=== PATIENT | male | born 1970 | race American Indian/Alaskan Native ===

== ENCOUNTER 2018-08-16 19:55 | Emergency (ER) | payer MEDICAID ==
[2018-08-16 20:00] VITALS: BMI 25.0
[2018-08-16 20:30] VITALS: TEMP 98.3
--- NOTE | 2018-08-16 22:02 | ED PDOC ---
Arrival/HPI - General Chief Complaint: Substance Abuse Time Seen by Provider: 08/16/18 20:08 Historian: Patient EM Caveat: Intoxicated - History of Present Illness Narrative History of Present Illness (Text): 08/16/18 22:03 48 year old male, with no known past medical history, presents to the emergency department by EMS for intoxication. Patient was found wandering lost in the street, as per EMS. While in the emergency department, patient dropped a vile of formaldehyde "dip". HPI and ROS limited due to patient intoxication. Time/Duration: Prior to Arrival Past Medical History - Provider Review Nursing Documentation Reviewed: Yes - Infectious Disease Hx of Infectious Diseases: None Family/Social History - Physician Review Nursing Documentation Reviewed: Yes Family/Social History: No Known Family HX Allergies/Home Meds Allergies/Adverse Reactions: Allergies No Known Allergies Allergy (Verified 08/17/18 08:59) Home Medications: Home Meds Medication Instructions Recorded Confirmed No Known Home Med 02/09/16 02/09/16 Unobtainable 08/29/17 08/29/17 No Known Home Med 08/16/18 08/16/18 Review of Systems - Review of Systems Systems not reviewed;Unavailable: Intoxicated Physical Exam - Physical Exam Physical Exam Limitations: Intoxication, Uncooperative Vital Signs Reviewed: Yes Vital Signs Temp Pulse Resp BP Pulse Ox 08/16/18 20:15 98.3 F 94 H 24 117/97 H 97 Temperature: Afebrile Blood Pressure: Hypertensive Pulse: Regular Respiratory Rate: Normal Appearance: Positive for: Well-Appearing, Non-Toxic, Comfortable Pain Distress: None Mental Status: Positive for: Alert and Oriented X 3 Medical Decision Making ED Course and Treatment: 08/16/18 22:07 Impression: 48 year old male presents via EMS for intoxication. Plan: -- Labs -- Ativan -- Geodon -- One on One -- Restraint/seclusion for violent behavior -- Reassess and disposition Prior Visits: Notes and results from previous visits were reviewed. Progress Notes: - EKG Interpretation EKG Interpretation (Text): 08/16/18 22:13 nsr rate 91 nsst changes - Medication Orders Current Medication Orders: Discontinued Medications Ziprasidone (Geodon Inj) 10 mg IM STAT STA; Protocol Stop: 08/16/18 20:29 Last Admin: 08/16/18 20:36 Dose: 10 mg IM Administration Charges Document 08/16/18 20:36 TAMIKO (Rec: 08/16/18 20:36 TAMIKO [id number]) Injection Site MAR Injection Site Right Vastus Lateralis Charges for Administration # of IM Administrations 1 - Scribe Statement The provider has reviewed the documentation as recorded by the Scribe Rick Haas Provider Scribe Attestation: All medical record entries made by the Scribe were at my direction and personally dictated by me. I have reviewed the chart and agree that the record accurately reflects my personal performance of the history, physical exam, medical decision making, and the department course for this patient. I have also personally directed, reviewed, and agree with the discharge instructions and disposition. Disposition/Present on Arrival - Present on Arrival Any Indicators Present on Arrival: No History of DVT/PE: No History of Uncontrolled Diabetes: No Urinary Catheter: No History of Decub. Ulcer: No History Surgical Site Infection Following: None - Disposition Have Diagnosis and Disposition been Completed?: Yes Diagnosis: Substance abuse Disposition: HOME/ ROUTINE Disposition Time: 02:55 Condition: STABLE Discharge Instructions (ExitCare): Drug Abuse and Drug Addiction (DC) Referrals: Howard Beatty MD [Primary Care Provider] - Follow up with primary Forms: [employer] (Japanese)
--- NOTE | 2018-08-17 08:14 | CARD ---
APPROVED REPORT Date of service: 08/16/2018 EKG Measurement Heart [id number] <Conclusion> Normal sinus rhythm Minimal voltage criteria for LVH, may be normal variant Nonspecific ST abnormality
[2018-08-17 10:56] VITALS: BP 127/72; PULSE 82; RESP 18; O2SAT 98
== END 2018-08-17 02:57 | disposition home or self-care (01) ==
LOC: MERGE 19:55 → ED 19:55
DX: F19.10 Other psychoactive substance abuse, uncomplicated (principal)
CPT/HCPCS: 93005; 96372; 99285; J3486

== ENCOUNTER 2018-11-21 03:52 | Emergency (ER) | payer MEDICAID ==
[2018-11-21 03:55] VITALS: BMI 28.2
[2018-11-21 03:59] VITALS: BP 140/85; PULSE 78; RESP 16; TEMP 97.9; O2SAT 100
--- NOTE | 2018-11-21 04:37 | ED PDOC ---
Arrival/HPI - General Chief Complaint: Medical Clearance Time Seen by Provider: 11/21/18 04:17 Historian: Patient - History of Present Illness Narrative History of Present Illness (Text): 11/21/18 04:36 Kenneth Hays is a 48 year old male, whose past medical history includes substance abuse, who presents to the Emergency department brought in by EMS complaining of an open wound to the right upper arm. Patient was seen at [facility] on a couple of occasional, initially for a laceration to the right upper arm which was repaired. Patient apparently re-injured the arm with hematoma formation which was evacuated in the OR. Patient was discharged for follow-up with surgeon, which he did not keep. Patient subsequently injured his arm again, opening the wound. Patient was seen again at [facility] and was advised outpatient follow with non-closure of the wound at that time due to possible subsequent infection. Patient has not followed-up since. Patient denies any weakness/numbness/tingling in the extremity, decreased range of motion, fever, chills, or any other complaints. Symptom Onset: Gradual Symptom Course: Unchanged Activities at Onset: Light Context: Home Past Medical History - Provider Review Nursing Documentation Reviewed: Yes - Infectious Disease Hx of Infectious Diseases: None - Psychiatric Hx Substance Use: No (UNKNOWN) - Surgical History Hx Musculoskeletal Surgery: Yes (lt arm) - Anesthesia Hx Anesthesia: Yes Hx Anesthesia Reactions: No Hx Malignant Hyperthermia: No Family/Social History - Physician Review Nursing Documentation Reviewed: Yes Family/Social History: Unknown Family HX Smoking Status: Unknown If Ever Smoked Hx Alcohol Use: No (UNKNOWN) Hx Substance Use: No (UNKNOWN) Substance used: denies Allergies/Home Meds Allergies/Adverse Reactions: Allergies No Known Allergies Allergy (Verified 08/17/18 08:59) Review of Systems - Physician Review All systems were reviewed & negative as marked: Yes - Review of Systems Constitutional: Normal. absent: Fevers Eyes: Normal ENT: Normal Respiratory: Normal. absent: SOB, Cough Cardiovascular: Normal. absent: Chest Pain Gastrointestinal: Normal. absent: Abdominal Pain, Diarrhea, Nausea, Vomiting Genitourinary Male: Normal. absent: Dysuria, Frequency, Hematuria, Urinary Output Changes Musculoskeletal: Other (+open surgical wound). absent: Back Pain, Neck Pain Skin: Normal. absent: Rash Neurological: Normal. absent: Headache, Dizziness Endocrine: Normal Hemo/Lymphatic: Normal Psychiatric: Normal Physical Exam Vital Signs Reviewed: Yes Vital Signs Temp Pulse Resp BP Pulse Ox 11/21/18 03:55 97.9 F 78 16 140/85 100 Temperature: Afebrile Blood Pressure: Normal Pulse: Regular Respiratory Rate: Normal Appearance: Positive for: Well-Appearing, Non-Toxic, Comfortable Pain Distress: None Mental Status: Positive for: Alert and Oriented X 3 - Systems Exam Head: Present: Atraumatic, Normocephalic Pupils: Present: PERRL Extroacular Muscles: Present: EOMI Conjunctiva: Present: Normal Mouth: Present: Moist Mucous Membranes Neck: Present: Normal Range of Motion Respiratory/Chest: Present: Clear to Auscultation, Good Air Exchange. No: Respiratory Distress, Accessory Muscle Use Cardiovascular: Present: Regular Rate and Rhythm, Normal S1, S2. No: Murmurs Abdomen: No: Tenderness, Distention, Peritoneal Signs Back: Present: Normal Inspection Upper Extremity: Present: Normal Inspection. No: Cyanosis, Edema Lower Extremity: Present: Normal Inspection. No: Edema Neurological: Present: GCS=15, CN II-XII Intact, Speech Normal Skin: Present: Warm, Dry, Normal Color. No: Rashes Psychiatric: Present: Alert, Oriented x 3, Normal Insight, Normal Concentration Medical Decision Making ED Course and Treatment: 11/21/18 04:36 Impression: 48 year old male complaining of open wound to right upper arm Plan: -- Surgical consult -- Reassess and disposition Prior Visits: Notes and results from previous visits were reviewed. Progress Notes: Case discussed with surgical assistant mission planner, who agrees to evaluate pt in Emergency department. 11/21/18 05:43 Pt seen and evaluated by Dr. Gerry Yoder, surgical assistant mission planner, who irrigated and redressed wound. Instructed pt to follow-up with wound care center for regular wound care. - Scribe Statement The provider has reviewed the documentation as recorded by the Piper Loo Provider Scribe Attestation: All medical record entries made by the Scribe were at my direction and personally dictated by me. I have reviewed the chart and agree that the record accurately reflects my personal performance of the history, physical exam, medical decision making, and the department course for this patient. I have also personally directed, reviewed, and agree with the discharge instructions and disposition. Disposition/Present on Arrival - Present on Arrival Any Indicators Present on Arrival: No History of DVT/PE: No History of Uncontrolled Diabetes: No Urinary Catheter: No History of Decub. Ulcer: No History Surgical Site Infection Following: None - Disposition Have Diagnosis and Disposition been Completed?: Yes Diagnosis: Wound dehiscence Disposition: HOME/ ROUTINE Disposition Time: 05:40 Patient Plan: Discharge Condition: GOOD Discharge Instructions (ExitCare): Wound Dehiscence (DC) Additional Instructions: Keep area clean and dry/daily wound dressing changes/FOLLOW UP AT [facility] THIS WEEK -Keep arm elevated -Ice pack -Compression dressing to decrease edema -Local wound care w non -adhesive dressing on the open wound (xeroform gauze) -Follow up at [facility] wound care clinic to get wound reevaluated for possible approximation or skin graft in the future after swelling decreases Prescriptions: Cephalexin [cephalexin] 500 mg PO BID #[id number] cap Referrals: [facility] [Outside] - Follow up with primary [facility] [Outside] - Follow up with primary Forms: [employer] (Cape Verdean)
--- NOTE | 2018-11-21 05:47 | CP.PCM.CON ---
History of Present Illness - History of Present Illness History of Present Illness: Surgery 48 M w PMH of PCP , poly subtance abuse came w R elbow injury wound dehiescence. He injured his elbow in september by falling into glass initially got stitched up at [facility] and got reinjured. Obtained hematoma of the wound. hematoma was evacuated and drain placed at [facility]. Pt had drain and stitches removed. Pt presented to [facility] today with wound dehiescenc and soft tissue swelling of the open wound. Reports that arm started to swelling up. Pain controlled s NSAIDs. Denies fever, nausea, diarrhea, CP, SOB. Pt went to [facility] prior to coming to [facility] and was offered conservative management w arm elevation, compression dressing to keep the swelling down. Pt was unhappy with the care and came here. Wound irrigated and cleaned. Non -occlusive gauze applied. Amado wrap was applied to decrease soft tissue edema. PMH keloids Review of Systems - Review of Systems Review of Systems: See HPI Past Patient History - Infectious Disease Hx of Infectious Diseases: None - Past Social History Smoking Status: Unknown If Ever Smoked - PSYCHIATRIC Hx Substance Use: No (UNKNOWN) - SURGICAL HISTORY Hx Musculoskeletal Surgery: Yes (lt arm) - ANESTHESIA Hx Anesthesia: Yes Hx Anesthesia Reactions: No Hx Malignant Hyperthermia: No Meds Allergies/Adverse Reactions: Allergies Allergy/AdvReac Type Severity Reaction Status Date / Time No Known Allergies Allergy Verified 08/17/18 08:59 Physical Exam - Constitutional Appears: No Acute Distress - Head Exam Head Exam: ATRAUMATIC, NORMAL INSPECTION, NORMOCEPHALIC - Eye Exam Eye Exam: EOMI, Normal appearance, PERRL Pupil Exam: NORMAL ACCOMODATION, PERRL - ENT Exam ENT Exam: Mucous Membranes Moist, Normal Exam - Neck Exam Neck exam: Positive for: Full Rom - Respiratory Exam Respiratory Exam: NORMAL BREATHING PATTERN - Cardiovascular Exam Cardiovascular Exam: REGULAR RHYTHM - GI/Abdominal Exam GI & Abdominal Exam: Soft. absent: Tenderness - Extremities Exam Extremities exam: Negative for: full ROM, normal inspection Additional comments: R UE 3 cm above the elbow has 10cm x 4 x 1cm wound opening with [id number] and [id number] soft tissue with healthy granulation tissues. Dec ROM on elbow. Results - Vital Signs Recent Vital Signs: Last Vital Signs Temp 97.9 F 11/21/18 03:55 Pulse 78 11/21/18 03:55 Resp 16 11/21/18 03:55 BP 140/85 11/21/18 03:55 Pulse Ox 100 11/21/18 03:55 Assessment & Plan - Assessment and Plan (Free Text) Assessment: WOund dehiescence of R posterior elbow Because of soft tissue swelling, unable to approximate the wound at this time -Keep arm elevated -Ice pack -Compression dressing to decrease edema -Local wound care w non -adhesive dressing on the open wound (xeroform gauze) -Follow up at [facility] wound care clinic to get wound reevaluated for possible approximation of the skin or skin graft in the future after swelling decreases
== END 2018-11-21 06:14 | disposition home or self-care (01) ==
LOC: ED 03:52
DX: T81.30XA Disruption of wound, unspecified, initial encounter (principal)

== ENCOUNTER 2018-11-30 14:28 | Outpatient (CLI) | payer MEDICAID | END 2018-11-30 14:29 | disposition home or self-care (01) | LOC: RAD 14:28 ==

== ENCOUNTER 2018-12-05 09:46 | Outpatient (CLI) | payer MEDICAID | END 2018-12-05 09:47 | disposition home or self-care (01) | LOC: PAT 09:46 | DX: L89.014 Pressure ulcer of right elbow, stage 4 (principal) ==

== ENCOUNTER 2018-12-06 05:50 | Day surgery (SDC) | payer MEDICAID ==
[2018-12-06 07:11] VITALS: RESP 18
[2018-12-06] MEDS ORDERED: Bupivacaine 0.5% 50 ML IJ ONE (07:20)
[2018-12-06] MEDS ORDERED: Oxychlorosene Topical 2 gm Packet TOP ONE (07:21)
[2018-12-06] MEDS ORDERED: Propofol 10 mg/ml Inj (20 ML) ONE (07:29)
[2018-12-06] MEDS ORDERED: Midazolam 2 MG/2 ML VIAL ONE (07:29)
[2018-12-06] MEDS ORDERED: Ketamine 10 mg/ml Inj (20 ml) ONE (07:35)
[2018-12-06] MEDS ORDERED: Lidocaine 1% Inj (20ml) ONE (07:38)
[2018-12-06] MEDS ORDERED: HYDROmorphone 0.5 mg/0.5 ml ISec IVP PRN (09:39)
[2018-12-06] MEDS ORDERED: HYDROmorphone 0.5 mg/0.5 ml ISec IVP ONE ×3 (09:42→10:21)
[2018-12-06] MEDS ORDERED: Sodium Chloride 0.9% 1,000 ML IV SCH (09:45)
[2018-12-06] MEDS ORDERED: HYDROmorphone 0.5 mg/0.5 ml ISec ONE ×3 (09:47→10:22)
--- NOTE | 2018-12-06 10:01 | PCM.SURG1 ---
Surgeon's Initial Post Op Note - Surgeon's Notes Surgeon: Ender Tree Inspector: PGY4, Yosi MS3 Type of Anesthesia: IV Sedation, Local Pre-Operative Diagnosis: Right elbow wound Operative Findings: Right elbow wound with extensive granulation tissue Post-Operative Diagnosis: Right elbow wound Operation Performed: Right elbow wound debridement, Skin flap elevation, closure of Right elbow wound Specimen/Specimens Removed: Right elbow wound scar and granulation tissue biopsy Estimated Blood Loss: EBL {In ML}: 50 Blood Products Given: N/A Drains Used: Judith Post-Op Condition: Good Date of Surgery/Procedure: 12/06/18 Time of Surgery/Procedure: 07:45
[2018-12-06] MEDS ORDERED: Oxycodone/Acetaminophen 5/325 mg Tab PO ONE (10:05)
[2018-12-06 10:55] VITALS: TEMP 97.7
[2018-12-06 11:34] VITALS: BP 103/60; PULSE 54; O2SAT 99
--- NOTE | 2018-12-07 06:07 | OP ---
PROCEDURE DATE: 12/06/2018 SURGEON: Kenneth Handley MD ASSISTANTS: Emmett Gandhi DO, PGY-4; and MS Yosi-3 TYPE OF ANESTHESIA: Local anesthetic and IV sedation. PREOPERATIVE DIAGNOSIS: Right elbow wound. POSTOPERATIVE DIAGNOSIS: Right elbow wound. FINDINGS: Right elbow wound granulation tissue with fibrinous material. DESCRIPTION OF PROCEDURE: The patient was brought to the operating room and placed in supine position. The right arm was then prepped and draped in sterile fashion. The patient was sedated with IV sedation and the area was then injected circumferentially around the wound with Marcaine and Xylocaine. A time was given to allow for adequate anesthesia of the area. A Versajet was then used to dbride the excessive granulation tissue inside the wound. It was debrided down to fibrous tissue. Good bleeding was seen though not excessive. We used the Versajet to dbride underneath the proximal flap as well to ensure that there was no granulation tissue remaining or fibrinous exudate. We then using electrocautery, raised the circumferential flap on either side of the wound and wound edges to allow for approximation of the skin edges for possible closure. The proximal flap required some thinning due to excessive fibrinous tissue and scarring but good amount of stretch was able to be gained from that maneuver. Biopsy was taken of the wound bed as well as underneath the proximal flap and these were sent to Pathology. The wound was then closed with retention sutures with a Eden drain placed inside and more local anesthetic was given. The wound edges were well approximated. A splint was placed on the posterior arm to prevent too much movement and possible paring of skin wound or sutures. The patient tolerated the procedure well and was returned to the PACU with the anesthesia and surgical teams in good condition. BLOOD LOSS: 50 mL. SPECIMEN: Wound bed and tissue biopsy. DRAINS: Judith. COMPLICATIONS: None. Emmett Gandhi DO Kenneth Handley MD [facility] # [id number]
== END 2018-12-06 12:20 | disposition home or self-care (01) ==
LOC: SDS 05:50
PROVIDERS: ATTEND Surgery
DX: L98.499 Non-pressure chronic ulcer of skin of other sites with unspecified severity (principal)
CPT/HCPCS: 14020; 87070; 88304; J0690; J1170; J2250; J2405; J2704; J7030; J7120

== ENCOUNTER 2019-01-08 15:10 | Emergency (ER) | payer OTHER, MEDICAID ==
[2019-01-08 15:10] VITALS: BMI 28.2
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
[2019-01-08 15:19] VITALS: BP 124/67; PULSE 81; RESP 18; TEMP 98.1; O2SAT 96
[2019-01-08] MEDS ORDERED: Lidocaine 5% Patch TD STA (15:37)
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
== END 2019-01-08 18:14 | disposition home or self-care (01) ==
LOC: ED 15:10
DX: S13.4XXA Sprain of ligaments of cervical spine, initial encounter (principal); V43.52XA Car driver injured in collision with other type car in traffic accident, initial encounter; W22.10XA Striking against or struck by unspecified automobile airbag, initial encounter; Y92.410 Unspecified street and highway as the place of occurrence of the external cause; M54.9 Dorsalgia, unspecified

== ENCOUNTER 2019-01-30 22:48 | Emergency (ER) | payer MEDICAID ==
[2019-01-30 22:49] VITALS: BMI 28.2
[2019-01-30 23:31] VITALS: RESP 16; TEMP 98.5
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
[2019-01-31 00:45] VITALS: BP 127/76
[2019-01-31] MEDS ORDERED: Bacitracin Ointment 30 GM TUBE TOP STA (01:42)
[2019-01-31] MEDS ORDERED: Bacitracin 500 Units/gm Oint Foilpak UD ONE (01:47)
[2019-01-31 01:49] VITALS: PULSE 72; O2SAT 99
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
== END 2019-01-31 01:49 | disposition home or self-care (01) ==
LOC: ED 22:48
DX: S09.90XA Unspecified injury of head, initial encounter (principal); Y00.XXXA Assault by blunt object, initial encounter

== ENCOUNTER 2019-03-21 15:00 | Emergency (ER) | payer MEDICAID ==
[2019-03-21 15:01] VITALS: BMI 28.2
[2019-03-21 15:50] VITALS: RESP 18; TEMP 98.1
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
[2019-03-21] MEDS: TDAP Vaccine 0.5 mL Syr IM ONE (16:52)
[2019-03-21 17:05] VITALS: BP 135/89; PULSE 62; O2SAT 98
== END 2019-03-21 17:05 | disposition home or self-care (01) ==
LOC: ED 15:00
DX: F16.10 Hallucinogen abuse, uncomplicated (principal); S80.212A Abrasion, left knee, initial encounter; S80.211A Abrasion, right knee, initial encounter; S60.519A Abrasion of unspecified hand, initial encounter; X58.XXXA Exposure to other specified factors, initial encounter; Z23 Encounter for immunization